=== PATIENT | female | born 1980 | race Caucasian/White ===

== ENCOUNTER → 2024-01-16 14:58 | Outpatient (BNVA) | payer BC, SELFPAY | PROVIDERS: Visit Provider Podiatrist Foot & Ankle Surgery | DX: M79.671 Pain in right foot (principal) | CPT/HCPCS: 73630 ==

== ENCOUNTER 2024-02-11 08:58 | Outpatient (CLI) | payer BC, SELFPAY ==
[2024-02-11 09:43] VITALS: PULSE 65; RESP 18; O2SAT 99
[2024-02-11] MEDS: albuterol 2.5 mg/3 mL Neb INHALATION (09:43)
== END 2024-02-11 08:59 | disposition home or self-care (01) ==
LOC: RT 09:00
PROVIDERS: PCP Electrodiagnostic Medicine; Visit Provider Electrodiagnostic Medicine
DX: R05.3 Chronic cough (principal)
CPT/HCPCS: 94060; 94726; 94729; J7613